=== PATIENT | female | born 1995 | race African-American/Black ===

== ENCOUNTER 2023-03-02 12:08 | Emergency (ER) | payer BC ==
[~2023-03-02] VITALS: Ht 154.9 cm; Wt 63.5 kg
[2023-03-02] MEDS ORDERED: FYCOMPA8 MG (13:20)
== END 2023-03-02 19:55 | disposition home or self-care (01) ==
LOC: ER 12:09
DX: S43.004A Unspecified dislocation of right shoulder joint, initial encounter (principal); W19.XXXA Unspecified fall, initial encounter; Y93.89 Activity, other specified; Y92.89 Other specified places as the place of occurrence of the external cause; Y99.8 Other external cause status; Z88.0 Allergy status to penicillin